=== PATIENT | male | born 1945 | race Caucasian/White ===

== ENCOUNTER 2017-04-11 16:23 | Emergency (ER) | payer OTHER ==
[~2017-04-11] VITALS: Ht 167.6 cm; Wt 9.1 kg
--- NOTE | ~2017-04-11 | EKG ---
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
--- NOTE | ~2017-04-11 | EKG ---
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
[~2017-04-11 16:23] MED LIST: AMLODIPINE BESY10 MG PO; ARICEPT 5 MG TAB5 MG PO; ASPIRIN EC81 M1 PO; ATORVASTATIN CA40 MG PO; BACITRACIN 500U30 G1 TOP; BENICAR HCT 401 EAC1 PO; BENICAR20 MG PO; BIAXIN 500 MG500 M2 PO; CEFTIN500 MG PO; DELUXE TABLET1 EACH; FLEXERIL PO; FOLIC ACID1 MG PO; GRALISE300 MG PO; HYDROCHLOROTHIA25 M2 PO; IBUPROFEN 600600 M1 PO; IBUPROFEN 800800 MG PO; KEFLEX500 MG PO; LANTUS SUBQ; MOTION RELIEF25 MG PO; NAMENDA 10 MG T10 MG PO; NAPROSYN500 MG PO; NORCO 5-325 TA1 EACH PO; NORTRIPTYLINE H25 M3 PO; OMEPRAZOLE40 MG PO; PREDNISONE 20 M20 MG PO
[2017-04-11 16:44] VITALS: BP 139/72
[2017-04-11 16:44] LABS: ABSOLUTE NEUTROPHILS 5.3 thou/uL (1.4-8.2); BASOPHILS 1.3 % (0.0-2.0); HEMATOCRIT 43.6 % (42.0-52.0); HEMOGLOBIN 15.1 gm/dL (14.0-18.0); LYMPHOCYTES 25.2 % (24.0-44.0); MCH 32.4 pg (26.0-34.0); MCHC 34.5 g/dL (28.0-37.0); MCV 93.6 fL (80.0-100.0); MONOCYTES 5.6 % (1.0-8.0); PLATELET COUNT 191 thou/uL (150-400); POLYS 66.9 % (36.0-66.0); RBC 4.65 mil/uL (4.50-6.00); RDW 14.4 % (10.5-14.5); WBC 7.8 thou/uL (4.0-11.0)
[2017-04-11 16:46] LABS: MANUAL DIFF NO
[2017-04-11 16:54] LABS: ANION GAP 8 mmol/L (7-16); BUN 36 mg/dL (7-18); CALCIUM 9.5 mg/dL (8.5-10.1); CHLORIDE 103 mmol/L (98-107); CO2 27 mmol/L (21-32); CREATININE 2.1 mg/dL (0.7-1.3); GLUCOSE 264 mg/dL (74-106); POTASSIUM 3.5 mmol/L (3.5-5.1); SODIUM 138 mmol/L (136-145)
[2017-04-11 16:58] LABS: APTT 26.7 Seconds (24.5-32.8); PROTIME 10.1 Seconds (9.3-11.4)
[2017-04-11 17:02] LABS: TROPONIN-I < 0.04 ng/mL (<0.04-0.07)
[2017-04-11] MEDS ORDERED: BENICAR40 MG (17:02)
[2017-04-11] MEDS ORDERED: LANTUS100 UNIT/M (17:02)
[2017-04-11] MEDS ORDERED: NEURONTIN 300M300 M2 (17:02)
[2017-04-11 18:20] VITALS: BP 158/86
== END 2017-04-11 18:21 | disposition left against medical advice (07) ==
LOC: ER 16:23 → EDBD 16:23 → ER 16:23 → EROBS 17:31 → ER 17:31
PROVIDERS: Emergency Medicine
DX: R07.9 Chest pain, unspecified (principal); F10.10 Alcohol abuse, uncomplicated; N28.9 Disorder of kidney and ureter, unspecified; Z91.14 Patient's other noncompliance with medication regimen

== ENCOUNTER 2017-10-26 16:28 | Emergency (ER) | payer OTHER ==
[~2017-10-26] VITALS: Ht 172.7 cm; Wt 89.8 kg
[~2017-10-26 16:28] MED LIST changes: +BENICAR40 MG; +GUAIFEN-CODEINE10 ML PO; +LANTUS100 UNIT/M; +NEURONTIN 300M300 M2; +TESSALON PERLE100 MG PO
[2017-10-26] MEDS ORDERED: DOXYCYCLINE 10100 MG PO (17:21)
== END 2017-10-26 17:28 | disposition home or self-care (01) ==
LOC: ER 16:28
DX: R21 Rash and other nonspecific skin eruption (principal); E11.9 Type 2 diabetes mellitus without complications; I25.2 Old myocardial infarction

== ENCOUNTER 2018-09-04 18:59 | Emergency (ER) | payer OTHER ==
[~2018-09-04] VITALS: Ht 167.6 cm; Wt 98.9 kg
[~2018-09-04 18:59] MED LIST changes: +DOXYCYCLINE 10100 MG PO
[2018-09-04] MEDS ORDERED: ULTRAM 50MG TAB50 MG PO (20:29)
[2018-09-04 20:48] VITALS: BP 176/76
== END 2018-09-04 20:49 | disposition home or self-care (01) ==
LOC: ER 18:59
DX: M25.561 Pain in right knee (principal); E11.9 Type 2 diabetes mellitus without complications; W00.0XXA Fall on same level due to ice and snow, initial encounter; Y93.89 Activity, other specified; Y92.89 Other specified places as the place of occurrence of the external cause; Y99.8 Other external cause status

== ENCOUNTER → 2020-08-06 | Emergency (ER) | payer OTHER ==
[~2020-08-06] VITALS: Ht 177.8 cm; Wt 99.8 kg
[~2020-08-06] MED LIST changes: +ULTRAM 50MG TAB50 MG PO; +VIBRAMYCIN 100100 M2 PO
[2020-08-06 15:42] VITALS: BP 173/85
[2020-08-06 16:51] LABS: HEMATOCRIT 42.5 % (42.0-52.0); HEMOGLOBIN 14.4 gm/dL (14.0-18.0); MCH 31.3 pg (26.0-34.0); MCHC 33.9 g/dL (28.0-37.0); MCV 92.4 fL (80.0-100.0); RBC 4.6 mil/uL (4.50-6.00); RDW 13.7 % (10.5-14.5); WBC 6.1 thou/uL (4.0-11.0)
[2020-08-06 17:04] LABS: CALCIUM 9.9 mg/dL (8.5-10.1); CREATININE 1.9 mg/dL (0.7-1.3); POTASSIUM 4.6 mmol/L (3.5-5.1)
--- NOTE | 2020-08-07 07:16 | EKG ---
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 Counselor: CLIFF : 1945 Requested By: Latrell Curtis Order Number: [id number] MD: Alton Everett Measurements Intervals [place] Rate: 63 P: -18 AL: 179 QRS: -15 QRSD: 92 T: 70 QT: 389 QTc: 399 Interpretive Statements Sinus rhythm Borderline left axis deviation Compared to ECG 10/31/2017 23:26:58 Ventricular premature complex(es) no longer present Electronically Signed On 08-07-2020 7:16:21 PAPER FEEDER by Alton Everett [email or web address] <ELECTRONICALLY SIGNED> By: Alton Everett MD, [facility] 08/07/20 0716 1519 1519 Altno Everett MD, FACC /EPI
== END ==
LOC: ER 15:11
PROVIDERS: Physician Assistant
DX: J18.9 Pneumonia, unspecified organism (principal); I25.2 Old myocardial infarction; E11.9 Type 2 diabetes mellitus without complications; Z79.899 Other long term (current) drug therapy

== ENCOUNTER 2020-09-01 18:10 | Emergency (ER) | payer OTHER ==
[~2020-09-01] VITALS: Ht 177.8 cm; Wt 92.5 kg
[2020-09-01 18:37] LABS: ABSOLUTE NEUTROPHILS 4.8 thou/uL (1.4-8.2); BASOPHILS 1.5 % (0.0-2.0); EOSINOPHILS 2.1 % (0.0-3.0); HEMATOCRIT 41.1 % (42.0-52.0); HEMOGLOBIN 13.8 gm/dL (14.0-18.0); LYMPHOCYTES 23.4 % (24.0-44.0); MCH 30.7 pg (26.0-34.0); MCHC 33.5 g/dL (28.0-37.0); MCV 91.7 fL (80.0-100.0); MONOCYTES 7.6 % (1.0-8.0); PLATELET COUNT 220 thou/uL (150-400); POLYS 65.4 % (36.0-66.0); RBC 4.48 mil/uL (4.50-6.00); RDW 13.6 % (10.5-14.5); WBC 7.3 thou/uL (4.0-11.0)
[2020-09-01 18:49] LABS: INR 1.1; PROTIME 11.4 Seconds (9.3-11.4)
[2020-09-01] MEDS ORDERED: LAMOTRIGINE25 MG PO (18:49)
[2020-09-01] MEDS ORDERED: MEMANTINE HCL E21 MG PO (18:50)
[2020-09-01] MEDS ORDERED: CELECOXIB100 MG PO (18:50)
[2020-09-01] MEDS ORDERED: LOSARTAN POTAS100 MG PO (18:50)
[2020-09-01 19:22] LABS: ANION GAP 10 mmol/L (7-16); BUN 36 mg/dL (7-18); CALCIUM 8.8 mg/dL (8.5-10.1); CHLORIDE 108 mmol/L (98-107); CO2 24 mmol/L (21-32); CREATININE 1.8 mg/dL (0.7-1.3); GLUCOSE 126 mg/dL (74-106); SODIUM 142 mmol/L (136-145)
[2020-09-01 19:23] LABS: POTASSIUM 5.1 mmol/L (3.5-5.1)
[2020-09-01 19:27] LABS: ALBUMIN 3.4 g/dL (3.4-5.0); SGOT 42 U/L (15-37); SGPT 26 U/L (16-63); TOTAL BILIRUBIN 0.6 mg/dL (0.2-1.0); TOTAL PROTEIN 7.1 g/dL (6.4-8.2); TROPONIN-I <0.06 ng/mL (<0.06)
[2020-09-01 19:47] VITALS: BP 156/77
--- NOTE | 2020-09-02 07:29 | EKG ---
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 : 1945 Requested By: Shani Staples Order Number: [id number] MD: Alton Everett Measurements Intervals [place] Rate: 64 P: -52 CA: 178 QRS: -31 QRSD: 87 T: 74 QT: 384 QTc: 396 Interpretive Statements NSR Atrial premature complex Left axis deviation Borderline T abnormalities, lateral leads Compared to ECG 08/06/2020 15:19:35 Ectopic atrial rhythm now present Atrial premature complex(es) now present T-wave abnormality now present Sinus rhythm no longer present Electronically Signed On 09-02-2020 7:29:18 LOAD TALLIER by Alton Everett [email or web address] <ELECTRONICALLY SIGNED> By: Alton Everett MD, [facility] 09/02/20 0729 1836 183 Alton Everett MD, [facility] /EPI
== END 2020-09-01 19:49 | disposition short-term general hospital (02) ==
LOC: ER 18:10
PROVIDERS: Emergency Medicine
DX: I62.9 Nontraumatic intracranial hemorrhage, unspecified (principal); I10 Essential (primary) hypertension; E11.9 Type 2 diabetes mellitus without complications; I25.2 Old myocardial infarction; Z79.899 Other long term (current) drug therapy

== ENCOUNTER 2021-03-19 23:16 | Emergency (ER) | payer OTHER ==
[~2021-03-19] VITALS: Ht 170.2 cm; Wt 68.0 kg
--- NOTE | ~2021-03-19 | EMS ---
[facility] [address] [place] [address] EMS Patient Care Report Name: MONA MADISON Room #: DEP CHET [place]#: [id number] Admission: 03/19/21 Attend Phys: Discharge: 03/20/21 Date of : 45 Report #: [id number] THIS REPORT FOR: //name// Report Transmitted: 03/21/2021 10:48 EMS Care Summary [place], [place]/[facility] Incident [id number] @ 03/19/2021 22:52 Incident Location [facility] [address] [place] Patient MONA MADISON-OLIVIA Male, 75 Years 1945 Patient Address [facility] [address] [place] [address] Chief Complaint L shoulder pain/fx/fall Disposition Transported No Lights/[place] Dispatch Reason Falls Transported To [facility] Narrative staff reports that pt slipped out of his wheelchair and fell onto L side. unk LOC, pt alert when they found him on the floor. pt points to his L shoulder when asked if he hurts. the shoulder may appear mildly deformed. pt will not move L arm. L hand appears swollen, staff states new after the fall. pt found still lying on the floor, alert. pt lifted to cot and shoulder and humerus supported w/ pillow. transport w/o change. Initial Vitals @23:09P: 88,R: 18,BP: 135/76,GCS: 13,SpO2: 99,Revised Trauma: 12, [facility] [address] [place] [address] EMS Patient Care Report Name: MONA MADISON Room #: DEP CHET [place]#: [id number] Admission: 03/19/21 Attend Phys: Discharge: 03/20/21 Date of : 45 Report #: [id number] Assessments @23:00MENTAL:Place Oriented,Person Oriented,SKIN:No Abnormalities,HEENT:LUNG SOUNDS:ABDOMEN:PELVIS//GI:Incontinence,EXTREMITIES:Left Arm: Other,Left Arm: Edema,PULSE:Radial: 2+ Normal,NEURO: Impression Injury of Shoulder or Upper Arm Procedures @23:00ALS AssessmentResponse: Unchanged@23:02StretcherResponse: Unchanged@23:03Splint Fx/Disloc.Response: Unchanged Timeline 22:33,Dispatch Notified 22:50,Call Received 22:52,Dispatched 22:54,En Route 22:58,On Scene 23:00,At Patient 23:00,ALS Assessment,Response: Unchanged 23:02,Stretcher,Response: Unchanged 23:03,Splint Fx/Disloc.,Response: Unchanged 23:08,Depart Scene 23:09,BP: 135/76 M,PULSE: 88,RR: 18 R,SPO2: 99 Ox,ETCO2: ,BG: ,PAIN: ,GCS: 13, 23:17,At Destination 23:33,Call Closed Disclaimer v1.1 Copyright 2020 [employer] This EMS Care Summary contains data elements from the applicable legal record (which may be displayed differently). It is designed to provide pertinent information for the following purposes: continuity of care, clinical quality, and state data reporting. The complete legal record is available to ED staff and administrators of the receiving hospital in [facility]'s Patient Tracker. All data is provided "as is."
[~2021-03-19 23:16] MED LIST changes: +CELECOXIB100 MG PO; +LAMOTRIGINE25 MG PO; +LOSARTAN POTAS100 MG PO; +MEMANTINE HCL E21 MG PO
[2021-03-19] MEDS ORDERED: VITAMIN C500 M2 PO (23:46)
[2021-03-19] MEDS ORDERED: NORVASC10 MG PO (23:46)
[2021-03-19] MEDS ORDERED: TYLENOL325 M1 PO (23:47)
[2021-03-19] MEDS ORDERED: LAMOTRIGINE250 MG PO (23:48)
[2021-03-19] MEDS ORDERED: ATIVAN0.5 M1 PO (23:48)
[2021-03-19] MEDS ORDERED: ARICEPT10 M1 PO (23:48)
[2021-03-19] MEDS ORDERED: AMINO ACID1 EACH PO (23:49)
[2021-03-19] MEDS ORDERED: GRALISE600 MG PO (23:49)
[2021-03-19] MEDS ORDERED: ANIMAL CHEWS1 EAC1 PO (23:49)
[2021-03-20 04:00] VITALS: BP 139/84
== END 2021-03-20 04:00 ==
LOC: ER 23:16
DX: M25.512 Pain in left shoulder (principal); E11.9 Type 2 diabetes mellitus without complications; Z79.899 Other long term (current) drug therapy; W07.XXXA Fall from chair, initial encounter; Y93.89 Activity, other specified; Y92.89 Other specified places as the place of occurrence of the external cause; Y99.8 Other external cause status

== ENCOUNTER 2021-05-08 13:47 | Emergency (ER) | payer OTHER ==
[~2021-05-08] VITALS: Ht 170.2 cm; Wt 68.0 kg
--- NOTE | ~2021-05-08 | EMS ---
[facility] [address] [place] [address] EMS Patient Care Report Name: MONA MADISON Room #: MAYE [place]#: [id number] Admission: 05/08/21 Attend Phys: Discharge: 05/08/21 Date of : 45 Report #: [id number] THIS REPORT FOR: //name// Report Transmitted: 05/09/2021 14:40 EMS Care Summary [place], [place]/[facility] Incident [id number] @ 05/08/2021 13:21 Incident Location [address] Patient MONA MADISON-RYAN Male, 75 Years 1945 Patient Address [address] [place] [address] [address] [place] [address] Chief Complaint Right sided wrist pain Disposition Transported No Lights/[place] Dispatch Reason Falls Transported To [facility] Narrative M42 arrived on scene to find the patient lying supine in his bed. Staff had come into the room to find the patient lying on the ground. Patient had slipped out of his recliner and was complaining of right wrist pain. No obvious deformity was noted to the patient's wrist. Patient denied head, neck, or back pain. Patient was not on any blood thinners at the time. Patient denied a loss of consciousness. 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 En route to the hospital no changes in the patient condition occurred. M42 arrived on scene of the hospital and patient care was transferred to the . [facility] [address] [place] [address] EMS Patient Care Report Name: MONA MADISON Room #: DEP CHET [place]#: [id number] Admission: 05/08/21 Attend Phys: Discharge: 05/08/21 Date of : 45 Report #: [id number] Initial Vitals @13:39P: 66,R: 16,BP: 171/68,Pain: 4/10,GCS: 14,Glucose: 203,SpO2: 97,Revised Trauma: 12, @13:43P: 78,R: 16,BP: 168/103,Pain: 4/10,GCS: 14,CO: 4,SpO2: 96,Revised Trauma: 12, Assessments @13:30MENTAL:Person Oriented,Event Oriented,Confused,SKIN:No Abnormalities,HEENT:Head/Face: No Abnormalities,Eyes: No Abnormalities,Neck/Airway: No Abnormalities,LUNG SOUNDS:General: No Abnormalities,Left Upper: No Abnormalities,Right Upper: No Abnormalities,Left Lower: No Abnormalities,Right Lower: No Abnormalities,ABDOMEN:General: No Abnormalities,Left Upper: No Abnormalities,Right Upper: No Abnormalities,Left Lower: No Abnormalities,Right Lower: No Abnormalities,PELVIS//GI:No Abnormalities,EXTREMITIES:Right Arm: Other,Left Arm: No Abnormalities,Left Leg: No Abnormalities,Right Leg: No Abnormalities,PULSE:Radial: 2+ Normal,NEURO:No Abnormalities,@13:45MENTAL:Event Oriented,Person Oriented,Confused,SKIN:No Abnormalities,HEENT:Head/Face: No Abnormalities,Eyes: No Abnormalities,Neck/Airway: No Abnormalities,LUNG SOUNDS:General: No Abnormalities,Left Upper: No Abnormalities,Right Upper: No Abnormalities,Left Lower: No Abnormalities,Right Lower: No Abnormalities,ABDOMEN:General: No Abnormalities,Left Upper: No Abnormalities,Right Upper: No Abnormalities,Left Lower: No Abnormalities,Right Lower: No Abnormalities,PELVIS//GI:No Abnormalities,EXTREMITIES:Right Arm: Other,Left Arm: No Abnormalities,Left Leg: No Abnormalities,Right Leg: No Abnormalities,PULSE:NEURO:No Abnormalities, Impression Injury of Wrist, Hand, or Fingers Procedures @13:30ALS AssessmentResponse: UnchangedSucceeded Timeline 13:19,Call Received 13:19,Dispatch Notified 13:21,Dispatched 13:21,En Route 13:29,On Scene 13:30,At Patient 13:30,ALS Assessment,Response: UnchangedSucceeded, 13:39,BP: 171/68 M,PULSE: 66,RR: 16 R,SPO2: 97 Ox,ETCO2: ,B,PAIN: 4,GCS: 14, 13:42,Depart Scene 13:43,BP: 168/103 M,PULSE: 78,RR: 16 R,SPO2: 96 Ox,ETCO2: ,BG: ,PAIN: 4,GCS: 14, 13:45,At Destination [address] [address] EMS Patient Care Report Name: MONA MADISON Room #: [facility] CHET [place]#: [id number] Admission: 05/08/21 Attend Phys: Discharge: 05/08/21 Date of : 45 Report #: [id number] 13:51,Call Closed Disclaimer v1.1 Copyright 2020 [employer] This EMS Care Summary contains data elements from the applicable legal record (which may be displayed differently). It is designed to provide pertinent information for the following purposes: continuity of care, clinical quality, and state data reporting. The complete legal record is available to ED staff and administrators of the receiving hospital in [employer]'s Patient Tracker. All data is provided "as is."
[~2021-05-08 13:47] MED LIST changes: +AMINO ACID1 EACH PO; +ANIMAL CHEWS1 EAC1 PO; +ARICEPT10 M1 PO; +ATIVAN0.5 M1 PO; +GRALISE600 MG PO; +LAMOTRIGINE250 MG PO; +NORVASC10 MG PO; +TYLENOL325 M1 PO; +VITAMIN C500 M2 PO
[2021-05-08 15:06] LABS: ABSOLUTE NEUTROPHILS 4.5 thou/uL (1.4-8.2); BASOPHILS 0.6 % (0.0-2.0); EOSINOPHILS 0.8 % (0.0-3.0); HEMATOCRIT 37.5 % (42.0-52.0); HEMOGLOBIN 12.7 gm/dL (14.0-18.0); LYMPHOCYTES 21.4 % (24.0-44.0); MCH 31.2 pg (26.0-34.0); MCHC 33.9 g/dL (28.0-37.0); MCV 92.1 fL (80.0-100.0); MONOCYTES 6.4 % (1.0-8.0); PLATELET COUNT 220 thou/uL (150-400); POLYS 70.8 % (36.0-66.0); RBC 4.07 mil/uL (4.50-6.00); RDW 13.9 % (10.5-14.5); WBC 6.3 thou/uL (4.0-11.0)
[2021-05-08] MEDS ORDERED: IBUPROFEN 600600 M1 PO (15:07)
[2021-05-08 15:10] VITALS: BP 162/82
[2021-05-08 15:18] LABS: CALCIUM 8.7 mg/dL (8.5-10.1); CREATININE 1.6 mg/dL (0.7-1.3); POTASSIUM 4.1 mmol/L (3.5-5.1)
== END 2021-05-08 15:10 ==
LOC: ER 13:47
PROVIDERS: Emergency Medicine
DX: S40.021A Contusion of right upper arm, initial encounter (principal); I25.2 Old myocardial infarction; E11.9 Type 2 diabetes mellitus without complications; Z79.891 Long term (current) use of opiate analgesic; Z79.899 Other long term (current) drug therapy; W06.XXXA Fall from bed, initial encounter; Y93.89 Activity, other specified; Y92.89 Other specified places as the place of occurrence of the external cause; Y99.8 Other external cause status